=== PATIENT | male | born 1945 | race African-American/Black ===

== ENCOUNTER → 2018-02-11 | Outpatient (CLI) | payer MEDICARE | END | disposition home or self-care (01) | LOC: GOCC 15:27 | PROVIDERS: ATTEND Internal Medicine | DX: R05 Cough (principal) ==

== ENCOUNTER 2018-02-12 12:25 | Emergency (ER) | payer MEDICARE ==
[2018-02-12 12:37] VITALS: TEMP 97.6
--- NOTE | 2018-02-12 12:40 | ED.PDOC ---
History of Present Illness - General Chief Complaint: Skin/Abrasion/Tear Stated Complaint: allergic reaction Time Seen by Provider: 02/12/18 12:34 Source: EMS, [facility] records Exam Limitations: no limitations - History of Present Illness Initial Comments: [facility] PLACED A&D OINTMENT ON PT'S LIPS THIS MORNING. THEY THEN NOTICED HIS LIPS WERE SWELLING UP AND THEY WERE APPROPRIATELY CONCERNED SINCE HE IS A TRACHEOSTOMY/VENTILATOR PT AND THUS SENT TO ER. BASELINE SEVERE DEMENTIA. [facility] GAVE BENADRYL PER GTUBE AT 9 AM Allergies/Adverse Reactions: Allergies NO KNOWN ALLERGY Allergy (Verified 02/12/18 12:37) Home Medications: Ambulatory Orders Methylprednisolone [Medrol Dose Shane] 4 mg GT DAILY 6 Days #21 tab 02/12/18 Review of Systems - Review of Systems Unable to Obtain Due To: dementia Family Medical History - Family History Mother Family History: Unknown Physical Exam - Physical Exam General Appearance: Alert, Comfortable Eye Exam: bilateral normal Ears, Nose, Throat: other - BL LIP EDEMA. TONGUE, TONSILS, AND POSTERIOR OROPHARYNX NO EDEMA NOR ERYTHEMA. Neck: non-tender, full range of motion, supple Respiratory: chest non-tender, lungs clear, normal breath sounds, no respiratory distress, no accessory muscle use Cardiovascular/Chest: normal peripheral pulses, regular rate, rhythm Peripheral Pulses: radial,right: 2+, radial,left: 2+ Gastrointestinal/Abdominal: normal bowel sounds, non tender Back Exam: no CVA tenderness, no vertebral tenderness Extremity: pedal edema Neurologic: other - PT DOES NOT ANSWER QUESTIONS; CHRONIC SEVERE DEMENTIA. Skin Exam: normal color, warm/dry, other - MILD EDEMA OF BLE WHICH APPEARS TO BE CHRONIC. NO ERYTHEMA. NO EDEMA OF GROIN OR FACE (OTHER THAN LIPS) Lymphatic: no adenopathy Progress - Progress Progress: 02/12/18 15:21 BP STARTING TO ELEVATE. PT TAKES CARDIZEM 60 MG PER GT QID AND IT IS DUE NOW, THUS GIVING DOSE. 02/12/18 15:24 ALLERGIC REACTION W/O ANAPHYLAXIS. PT WAS NOT IN RESPIRATORY DISTRESS UPON ER ADMISSION - LUNGS CLEAR, SATS STABLE ON HIS CHRONIC TRACH VENT SETTINGS. PT HAS BEEN OBSERVED FOR 3 HRS AFTER HAVING BEEN GIVEN STEROIDS AND BENADRYL FOR ANGIOEDEMA (LIP SWELLING) ALLERGIC RXN FROM [place] A&D OINTMENT GIVEN AT [place]. PT'S SATS AND O2 REQUIREMENTS HAVE REMAINED STABLE AND NOT CONCERNING. THUS WILL DC BACK TO [facility] ON MEDROL DOSE PACK PER G TUBE. Departure - Departure Clinical Impression: Allergic reaction to chemical substance, Ventilator dependence Disposition: Discharge to SNF Condition: Good Departure Forms: ED Discharge - Pt. Copy, Patient Portal Self Enrollment Instructions: DI for General Allergic Reactions Diet: resume usual diet Activity: increase activity as tolerated Referrals: SHAILEHS WHYTE [Primary Care Provider] - 1-2 Weeks Prescriptions: Methylprednisolone [Medrol Dose Shane] 4 mg GT DAILY 6 Days #21 tab Home Medications: Ambulatory Orders Methylprednisolone [Medrol Dose Shane] 4 mg GT DAILY 6 Days #21 tab 02/12/18 Additional Instructions: Please add A & D ointment to his allergy list.
[2018-02-12] MEDS ORDERED: methylPREDNISolone ACETATE 80 MG/ML VIAL IM ONE (13:20)
[2018-02-12] MEDS ORDERED: diphenhydrAMINE HCL 50 MG/ML VIAL IM ONE (13:20)
[2018-02-12 15:16] VITALS: O2SAT 100
[2018-02-12] MEDS ORDERED: diltiaZEM HCL TAB 30 MG TAB GT ONE (15:19)
[2018-02-12 16:46] VITALS: BP 176/99
== END 2018-02-12 16:46 ==
LOC: ER 12:25
DX: T78.3XXA Angioneurotic edema, initial encounter (principal); T49.3X5A Adverse effect of emollients, demulcents and protectants, initial encounter; Z99.11 Dependence on respirator [ventilator] status; Y92.129 Unspecified place in nursing home as the place of occurrence of the external cause; F03.90 Unspecified dementia, unspecified severity, without behavioral disturbance, psychotic disturbance, mood disturbance, and anxiety
CPT/HCPCS: 94770; J1030; J1200

== ENCOUNTER 2018-03-14 14:20 | Emergency (ER) | payer MEDICARE, MEDICAID ==
[2018-03-14] MEDS ORDERED: IPRATROPIUM/ALBUTEROL 3 ML VIAL NEB ONE ×2 (14:30→14:35)
--- NOTE | 2018-03-14 15:18 | RAD ---
EXAM DESCRIPTION: Abdomen Series CLINICAL HISTORY: anasarca, adb distention COMPARISON: March 04, 2018 and March 08, 2018 FINDINGS: AP supine and upright views of the abdomen show a air-filled dilated loops of bowel the central abdomen. Gastrostomy tube is seen in the left epigastric region. No free intraperitoneal air. No significant air-fluid levels. Single view of the chest shows tracheostomy tube in place. Left subclavian transvenous cardiac pacemaker is noted. Multiple surgical clips in the lower neck region are seen right greater than left. Coarsened increased interstitial markings are seen throughout the right lung and to a lesser degree left lung. There is blunting of the costophrenic angles bilaterally. Moderate disc degenerative changes of the spine are seen. IMPRESSION: Air-filled distended loops of bowel throughout the lower abdomen are seen similar to previous exam. Interval worsening of the coarsened interstitial infiltrate throughout the right lung suggest interval worsening of pneumonia versus aspiration. Stable appearance to interstitial changes in the left lung. Small bilateral pleural effusions are increased from previous. Electronically signed by: Noah Dumont MD 03/14/2018 3:16 PM CDT
--- NOTE | 2018-03-14 17:25 | CT ---
EXAM DESCRIPTION: Abdomen t/Pelvis w/o Contrast CLINICAL HISTORY: 72 years, 72 years, Male, Male, renal failure and abd distention COMPARISON: None. TECHNIQUE: CT of the abdomen and pelvis is performed according to our non contrast protocol This exam was performed according to our departmental dose-optimization program, which includes automated exposure control, adjustment of the mA and/or kV according to patient size and/or use of iterative reconstruction technique. FINDINGS: Large layering bibasilar effusions with adjacent compressive atelectasis and/or infiltrative change anterior to the layering pleural effusions is present in both lung bases. Gastrostomy tube in the anterior aspect of the epigastrium with a fluid distended gastric body and fundus in the left upper quadrant is apparent. Overall image quality is limited by the lack of oral or IV contrast enhancement and the patient's overlying arms and upper extremities. Extensive subcutaneous and to a lesser extent mesenteric edematous changes are noted. The liver is normal in size with a normal distended gallbladder without definite gallstones and a small normal spleen. Pancreas appears atrophic and poorly visualized. Extensive cystic disease with numerous small to moderately large cyst involving each kidney is noted with no evidence of hydronephrosis. Aortic calcification without aneurysm is present. Small bowel caliber is normal but large amount of stool distends the left colon with marked distention of the rectum and sigmoid consistent with fecal impaction. The bladder is decompressed and drained via Rios catheter. Significant abdominal or pelvic ascites is not apparent. Inguinal or ventral hernia is not evident. IMPRESSION: 1. Markedly abnormal examination with extensive subcutaneous edematous changes and large bibasilar effusions with infiltrate or compressive atelectasis at the lung bases. 2. Gastrostomy tube in place along with Rios catheter in the pelvis with a fluid distended stomach and a markedly dilated stool distended rectum and distal sigmoid suggesting fecal impaction with considerable stool extending proximally in the left colon and transverse colon. 3. A small bowel obstruction or ascites or evidence of perforation within the abdominal cavity is not apparent 4. Normal-sized kidneys with extensive cystic disease without evidence of renal obstruction. Evaluation for a solid renal mass is markedly limited by the poor image quality and lack of contrast. 5. Advanced degenerative changes of the lower lumbar spine without destructive process. Electronically signed by: Dev Ledesma MD 03/14/2018 5:23 PM CDT
--- NOTE | 2018-03-14 17:30 | CT ---
EXAM DESCRIPTION: Chest w/o Contrast CLINICAL HISTORY: 72 years, Male, effusions vs empyema COMPARISON: None TECHNIQUE: Thin-section noncontrast axial CT images are obtained according to our protocol. Reconstructed MPR images are created and reviewed as well. This exam was performed according to our departmental dose-optimization program, which includes automated exposure control, adjustment of the mA and/or kV according to patient size and/or use of iterative reconstruction technique. FINDINGS: Noncontrast imaging of the chest demonstrates severe bullous emphysematous changes involving the apical regions of the lung with compressive atelectasis and/or dense pneumonitis with large layering pleural effusions bilaterally, slightly worse on the right than the left. Tracheostomy tube is well-positioned in the pulmonary apices are almost completely replaced by bolus disease bilaterally. How much of the consolidating changes particularly in the mid lung field on the right and how much of the interstitial coarsened markings represent acute interstitial infiltrate and how much represents chronic fibrosis is difficult to assess. Assessment of the hilar contours is very limited by the extensive infiltrative changes and pleural effusions. Heart size is judged normal. At least one moderately enlarged 2.5 cm pretracheal lymph node and modest enlargement of aorticopulmonary window lymphadenopathy noted. IMPRESSION: 1. Markedly abnormal chest with very large layering posterior pleural effusions bilaterally with dense consolidating changes in the midlung field on the right as well as extensive fibrotic and bullous emphysematous changes throughout both lungs. 2. No evidence of pneumothorax is noted. Tracheostomy tube well positioned. 3. Evaluation for a primary pulmonary mass or malignancy is markedly limited by the pleural fluid consolidating changes and bullous emphysematous changes in the apical regions. 4. Modest mediastinal lymphadenopathy in the pretracheal and aorticopulmonary window region of uncertain significance. The jorge are not well delineated secondary to the inflammatory changes and pleural fluid. Electronically signed by: Dev Ledesma MD 03/14/2018 5:29 PM CDT
[2018-03-14] MEDS ORDERED: MORPHINE SULFATE INJ 10 MG/ML VIAL IV ONE (17:50)
--- NOTE | 2018-03-14 17:56 | ED.PDOC ---
History of Present Illness - General Chief Complaint: GI Problem Stated Complaint: Distended abdomen Time Seen by Provider: 03/14/18 14:33 Source: patient Exam Limitations: clinical condition - History of Present Illness Initial Comments: the patient is a 72-year-old Citizen [place] male brought to the emergency room by EMS from [facility] secondary to abdominal distention and increased residuals with his tube feeds over the last day and a half. The patient has been having increasing anasarca as well. The patient has also been requiring escalated ventilator settings. According to staff familiar with the patient, the patient has been exhibiting signs of pain and distress. However secondary to the patient not being on comfort care they have been unable to escalate his pain medication doses in order to get him comfortable. The patient just recently came back from [facility] for treatment for bilateral pneumonia. He received his last dose of IV antibiotics just this morning. He was on cefepime and vancomycin. The patient does look uncomfortable. He does appear to have significant periods of discomfort and when this happens his blood pressure does markedly rise. The patient does have total body anasarca. He has a sacral decubitus ulcer as well as a posterior decubitus ulcer to his right calf. He has 3+ edema to his hands and feet. He has coarse rales bilaterally in lung moseley. He has markedly prolonged expiratory phases and his breathing. Abdomen is moderately distended but I cannot tell that he has significant discomfort in any one spot. Timing/Duration: unsure Severity: moderate Improving Factors: nothing Worsening Factors: nothing Allergies/Adverse Reactions: Allergies Lisinopril Allergy (Verified 03/14/18 14:50) A & D ointment Allergy (Uncoded 03/04/18 18:37) Home Medications: Ambulatory Orders Acetaminophen Suppository [Tylenol Suppository] 650 mg MS Q6H PRN 02/12/18 Acetylcysteine 2 ml IN BID 02/12/18 Atorvastatin Calcium [Lipitor] 10 mg PEG DAILY 02/12/18 Bisacodyl Suppository 10Mg [Dulcolax Suppository 10mg] 1 ea MS DAILY PRN Clonazepam 0.5 mg PEG Q8H 02/12/18 Diltiazem HCl 60 mg PO Q6H 02/12/18 Docusate Sodium 50 mg PEG BID 02/12/18 Famotidine 20 mg PEG DAILY 02/12/18 Gabapentin 300 mg PEG Q6H 02/12/18 HYDROcodone 7.5MG/APAP 325MG [[place] 7.5/325] 1 tab PEG Q6H PRN 02/12/18 Hydralazine HCl 50 mg PO Q8H 02/12/18 Ipratropium/Albuterol [Duoneb] 3 ml NEB Q6H 02/12/18 Isosorbide Dinitrate 20 mg PEG Q8H 02/12/18 Lactulose Syrup [Chronulac] 30 ml PEG DAILY 02/12/18 Methylprednisolone [Medrol Dose Shane] 4 mg GT DAILY 6 Days #21 tab 02/12/18 Polyvinyl Alcohol [Artificial Tears] 1 drop BOTH_EYES PRN 02/12/18 diphenhydrAMINE HCL [Benadryl] 50 mg PEG BID 02/12/18 guaiFENesin 100 MG/5 ML [Robitussin] 10 ml PEG DAILY 02/12/18 Review of Systems - Review of Systems Review of Systems: 03/14/18 17:51 unable to obtain secondary to patient's condition. Unable to Obtain Due To: condition Past Medical History (General) - Patient Medical History Hx Stroke: No Hx Asthma: Yes Hx of COPD: Yes Hx Cardiac Disorders: - pacemaker Hx Congestive Heart Failure: No Hx Pacemaker: Yes Hx Hypertension: Yes Hx Diabetes: Yes Hx Gastroesophageal Reflux: Yes - Vaccination History Hx Influenza Vaccination: Yes - 12/06/17 Hx Pneumococcal Vaccination: - unknown - Social History Hx Tobacco Use: No Hx Alcohol Use: No Hx Substance Use: No Hx Substance Use Treatment: No Hx Depression: No Family Medical History - Family History Mother Family History: Unknown Physical Exam - Physical Exam General Appearance: Alert - but the patient is unable to communicate. He does appear to be in distress at different times. Eye Exam: bilateral normal - he does not track with his eyes. Ears, Nose, Throat: normal ENT inspection Neck: other - tracheostomy is in place. There is marked scarring from the long- term trach collar. Respiratory: crackles, rales, rhonchi, wheezing Cardiovascular/Chest: other - diffuse anasarca. Heart sounds are difficult to hear secondary to pulmonary background noise. Regular rate when the patient is not in pain. Peripheral Pulses: radial,right: 2+, radial,left: 2+, dorsalis pedis,right: 2+, dorsalis pedis,left: 2+ Gastrointestinal/Abdominal: soft - but distended. G-tube is in place. Rectal Exam: deferred Back Exam: no CVA tenderness Extremity: normal capillary refill, other - the patient does have paralysis of all 4 extremities. He does have anasarca in all 4 extremities. Neurologic: alert, other - nable to test neurologically further secondary to chronic issues Skin Exam: other - the patient has a sacral ulcer as well as a right calf ulcer Comments: Vital Signs - 24 hr 03/14/18 03/14/18 03/14/18 14:38 14:40 15:01 Temperature 97.8 F Pulse Rate 102 H Pulse Rate [ 105 H 104 H 103 H Apical] Respiratory 16 16 16 Rate Respiratory Rate [Volume Control Data] Blood Pressure 202/88 180/74 180/86 [Right Arm] O2 Sat by Pulse 95 95 95 Oximetry 03/14/18 03/14/18 03/14/18 15:05 15:53 16:00 Temperature Pulse Rate 102 H 102 H Pulse Rate [ 100 H 100 H Apical] Respiratory 16 16 16 Rate Respiratory 16 Rate [Volume Control Data] Blood Pressure 186/77 184/73 [Right Arm] O2 Sat by Pulse 94 L 94 L 95 Oximetry 03/14/18 16:25 Temperature Pulse Rate Pulse Rate [ Apical] Respiratory 16 Rate Respiratory 16 Rate [Volume Control Data] Blood Pressure [Right Arm] O2 Sat by Pulse Oximetry Progress - Progress Progress: 03/14/18 17:59 the patient is a 72-year-old -Citizen [place] male presenting to the emergency room by EMS secondary to a deterioration over the last couple of days. The patient is a quadriplegic and is essentially unable to communicate at this time. He is long-term ventilator dependent. The patient has a recurrence of ventilator associated pneumonia. He has large pleural effusions that are likely related to renal failure as well as hypoalbuminemia. He appears to be having significant slowing and worsening of his intestinal function and significant worsening of his renal function. He does appear to be becoming septic based upon his blood work. The patient's prognosis given these acute issues on top of his chronic problems is very poor. At 5:35 PM today I discussed the patient with his next of kin, a Mrs. Bri Lopes, at [phone]. i did explain the patient's condition and prognosis to her. Initially she wanted the patient sent to [facility] for aggressive care. Within 5 minutes however she called back and decided that she wanted comfort care for him only. I did explain to her what comfort care was. She has agreed to this. The patient will be sent back to [facility] where comfort care measures can be assumed. He did receive a dose of morphine here. Ventilator settings have been adjusted. Given his acute and chronic problems, I believe the decision to be a very reasonable one. Aggressive care would very likely not change the outcome and only increase his suffering. - Results/Orders Results/Orders: chest x-ray shows worsening infiltrates and effusions. CT scan of the chest without contrast due to renal function shows large bibasilar pleural effusions with overlying atelectasis versus infiltrates. Extensive subcutaneous edema is noted. Abdominal CT scan shows large renal cysts. He does have a large amount of stool towards the rectum. No evidence of obstruction. Atrophic pancreas. Minimal ascites. Laboratory Results - last 24 hr 03/14/18 03/14/18 03/14/18 15:45 15:45 15:45 WBC 24.2 H* RBC 3.54 L Hgb 9.0 L Hct 28.8 L MCV 81.4 MCH 25.4 L MCHC 31.1 L RDW 19.6 H Plt Count 537 H MPV 8.5 Absolute Neuts (auto) Not Reportable Absolute Lymphs (auto) Not Reportable Absolute Monos (auto) Not Reportable Absolute Eos (auto) Not Reportable Neutrophils % Not Reportable Neutrophils % (Manual) 66.0 Lymphocytes % Not Reportable Lymphocytes % (Manual) 13.0 Monocytes % Not Reportable Monocytes % (Manual) 6.0 Eosinophils % Not Reportable Basophils % Not Reportable Band Neutrophils 11.0 H* Eosinophils 1.0 Metamyelocytes 3.0 H Hypochromia 1+ Platelet Estimate Increased Anisocytosis 2+ PT 14.5 H INR 1.250 PTT (SP) 26.1 Sodium 131 L Potassium 5.2 H Chloride 99 L Carbon Dioxide 23 Anion Gap 14.2 BUN 86 H Creatinine 2.00 H BUN/Creatinine Ratio 43.0 H Random Glucose 107 H Serum Osmolality 289.3 Calcium 8.9 Magnesium 2.5 Total Bilirubin 0.6 AST 23 ALT 20 Alkaline Phosphatase 179 H Creatine Kinase 32 L CK-MB (CK-2) 2.7 CK-MB (CK-2) % Not Reportable Troponin I 0.02 B-Natriuretic Peptide 203.0 H* Serum Total Protein 7.0 Albumin 2.0 L Globulin 5.0 H Albumin/Globulin Ratio 0.4 L Amylase 24 L Lipase 29 Departure - Departure Clinical Impression: Ventilator associated pneumonia, Generalized intestinal dysmotility, Hypoalbuminemia, Quadriplegia Acute renal failure Qualifiers: Acute renal failure type: unspecified Qualified Code(s): N17.9 - Acute kidney failure, unspecified Sepsis Qualifiers: Sepsis type: sepsis due to unspecified organism Qualified Code(s): A41.9 - Sepsis, unspecified organism Disposition: Discharge to SNF Condition: Serious Departure Forms: ED Discharge - Pt. Copy, Patient Portal Self Enrollment Instructions: DI for Sepsis -- Adult, Ventilator-Associated Pneumonia, Acute Renal Failure Diet: other - resume tube feedings only as tolerated Referrals: SHAILESH WHYTE [Primary Care Provider] - 1-2 Days Home Medications: Ambulatory Orders Acetaminophen Suppository [Tylenol Suppository] 650 mg MS Q6H PRN 02/12/18 Acetylcysteine 2 ml IN BID 02/12/18 Atorvastatin Calcium [Lipitor] 10 mg PEG DAILY 02/12/18 Bisacodyl Suppository 10Mg [Dulcolax Suppository 10mg] 1 ea MS DAILY PRN Clonazepam 0.5 mg PEG Q8H 02/12/18 Diltiazem HCl 60 mg PO Q6H 02/12/18 Docusate Sodium 50 mg PEG BID 02/12/18 Famotidine 20 mg PEG DAILY 02/12/18 Gabapentin 300 mg PEG Q6H 02/12/18 HYDROcodone 7.5MG/APAP 325MG [[place] 7.5/325] 1 tab PEG Q6H PRN 02/12/18 Hydralazine HCl 50 mg PO Q8H 02/12/18 Ipratropium/Albuterol [Duoneb] 3 ml NEB Q6H 02/12/18 Isosorbide Dinitrate 20 mg PEG Q8H 02/12/18 Lactulose Syrup [Chronulac] 30 ml PEG DAILY 02/12/18 Methylprednisolone [Medrol Dose Shane] 4 mg GT DAILY 6 Days #21 tab 02/12/18 Polyvinyl Alcohol [Artificial Tears] 1 drop BOTH_EYES PRN 02/12/18 diphenhydrAMINE HCL [Benadryl] 50 mg PEG BID 02/12/18 guaiFENesin 100 MG/5 ML [Robitussin] 10 ml PEG DAILY 02/12/18 Additional Instructions: the patient is a 44-year-old male presenting to the emergency room with what appears to be pain due to a left ureteral lithiasis, ased upon symptoms and hematuria. The patient has received some pain medications and IV fluids and is doing much better. KUB failed to show any stone along the path of the ureter, indicating that he has either passed into the ureter or is likely very small. The patient will be allowed to go home and will receive prescriptions for Flomax and Fioricet for as needed use. He needs to keep himself well-hydrated and move around a good bit. If he is still not passed a stone or still having significant discomfort in 3-5 days then he may need reevaluation. Renal function is within normal limits at this time. CT scan is not indicated at this time. No evidence of infection in the urine otherwise. he should follow up with his primary care doctor early next week for reevaluation. ER warnings were given. [facility] being [facility] to start hospice care arrangements.
[2018-03-14 18:44] VITALS: BP 179/76; TEMP 96; O2SAT 95
== END 2018-03-14 18:40 ==
LOC: ER 14:20
DX: A41.9 Sepsis, unspecified organism (principal); J95.851 Ventilator associated pneumonia; E88.09 Other disorders of plasma-protein metabolism, not elsewhere classified; K30 Functional dyspepsia; G82.50 Quadriplegia, unspecified; N17.9 Acute kidney failure, unspecified; J44.9 Chronic obstructive pulmonary disease, unspecified; I10 Essential (primary) hypertension; R60.1 Generalized edema; L89.159 Pressure ulcer of sacral region, unspecified stage; E11.9 Type 2 diabetes mellitus without complications; L89.899 Pressure ulcer of other site, unspecified stage; Z95.0 Presence of cardiac pacemaker; Z79.899 Other long term (current) drug therapy
CPT/HCPCS: 36415; 71250; 74019; 74176; 80053; 82150; 82550; 82553; 83690; 83735; 83880; 84484; 85025; 85610; 85730; 94002; 94640; 94770; J2270; J7620

== ENCOUNTER 2018-04-14 15:05 | Emergency (ER) | payer MEDICARE, MEDICAID ==
--- NOTE | 2018-04-14 15:33 | ED.PDOC ---
History of Present Illness - General Chief Complaint: Respiratory Problem Stated Complaint: Low O2 sats, low BP Time Seen by Provider: 04/14/18 15:32 Exam Limitations: clinical condition - patient non verbal ,ventilator, physical impairment - History of Present Illness Initial Comments: Francesco Fernández 72 y/o male chronic ventilator dependent brought by EMS after it was found that he had low xygen saturation at the [facility] and he was bagged at the facility and unable to get his saturation up to 90%.EMS was then called .On his arrival continued to have low o2 saturation and tracheostomy tube cuff unable to inflate so it was replaced by same size tube but noted on removal of trach tube there was blood on the cuff and suctioned again no blockage noted but trach tube unable to stay in place its getting pushed out.Has COPD,heart disease with pacemaker,anasarca also DNR but facility called up family regarding patients condition and they want to send patient to ER.Respiratory therapist unable to get a good tidal volume despite replacing his tracheostomy tube.Ct -Chest report march 14 large layering pleural effusion bilaterally w/dense consolidating changes and extensive bullous emphematous changes;also Ct Abdomen-extensive subcutaneous emphysematous changes large bibasilar effusion no bowel obstruction. Timing/Duration: 1-3 hours Severity: severe Improving Factors: nothing Worsening Factors: nothing Associated Symptoms: other - see hpi Allergies/Adverse Reactions: Allergies Lisinopril Allergy (Verified 04/14/18 15:30) A & D ointment Allergy (Uncoded 03/04/18 18:37) Home Medications: Ambulatory Orders Acetaminophen Suppository [Tylenol Suppository] 650 mg VT Q6H PRN 02/12/18 Acetylcysteine 2 ml IN BID 02/12/18 Atorvastatin Calcium [Lipitor] 10 mg PEG DAILY 02/12/18 Bisacodyl Suppository 10Mg [Dulcolax Suppository 10mg] 1 ea VT DAILY PRN Clonazepam 0.5 mg PEG Q8H 02/12/18 Diltiazem HCl 60 mg PO Q6H 02/12/18 Docusate Sodium 50 mg PEG BID 02/12/18 Famotidine 20 mg PEG DAILY 02/12/18 Gabapentin 300 mg PEG Q6H 02/12/18 HYDROcodone 7.5MG/APAP 325MG [[place] 7.5/325] 1 tab PEG Q6H PRN 02/12/18 Hydralazine HCl 50 mg PO Q8H 02/12/18 Ipratropium/Albuterol [Duoneb] 3 ml NEB Q6H 02/12/18 Isosorbide Dinitrate 20 mg PEG Q8H 02/12/18 Lactulose Syrup [Chronulac] 30 ml PEG DAILY 02/12/18 Methylprednisolone [Medrol Dose Shane] 4 mg GT DAILY 6 Days #21 tab 02/12/18 Polyvinyl Alcohol [Artificial Tears] 1 drop BOTH_EYES PRN 02/12/18 diphenhydrAMINE HCL [Benadryl] 50 mg PEG BID 02/12/18 guaiFENesin 100 MG/5 ML [Robitussin] 10 ml PEG DAILY 02/12/18 Review of Systems - Review of Systems Unable to Obtain Due To: condition, clinical condition Past Medical History (General) - Patient Medical History Hx Stroke: No Hx Asthma: Yes Hx of COPD: Yes Hx Cardiac Disorders: - pacemaker Hx Congestive Heart Failure: No Hx Pacemaker: Yes Hx Hypertension: Yes Hx Diabetes: Yes Hx Gastroesophageal Reflux: Yes Surgical History: pacemaker, other - tracheostomy - Vaccination History Hx Influenza Vaccination: Yes - 12/06/17 Hx Pneumococcal Vaccination: - unknown - Social History Hx Tobacco Use: No Hx Alcohol Use: No Hx Substance Use: No Hx Substance Use Treatment: No Hx Depression: No Family Medical History - Family History Mother Family History: Unknown Physical Exam - Physical Exam General Appearance: Other - unresponsive Eye Exam: bilateral other - unable to evaluate but PERRL Neck: other - tracheostomy with bloody return on suctioning Respiratory: decreased breath sounds Gastrointestinal/Abdominal: distended Extremity: other - anasarca,contracture deformities Neurologic: other - grimace on painful stimuli Skin Exam: warm/dry Progress - Progress Progress: 04/14/18 17:05 04/14/18 15:59 NG [Tube(s):Nasogastric,Insertion] PRN CARDIAC PANEL,ER Stat HEPATIC FUNCTION PANEL Stat Chest,1 View [RAD] Stat 04/14/18 16:38 ABG [Arterial Blood Gas] Stat Laboratory Results - last 24 hr 04/14/18 15:59 WBC 19.7 H RBC 2.94 L Hgb 7.2 L* Hct 24.1 L MCV 82.0 MCH 24.4 L MCHC 29.7 L RDW 19.8 H Plt Count 385 MPV 8.5 Absolute Neuts (auto) 13.10 H Absolute Lymphs (auto) 5.80 H Absolute Monos (auto) 0.60 Absolute Eos (auto) 0.20 Absolute Basos (auto) 0.00 Neutrophils % 66.2 Lymphocytes % 29.5 Monocytes % 2.9 Eosinophils % 1.2 Basophils % 0.2 Sodium 152 H Potassium 3.2 L Chloride 107 Carbon Dioxide 33 H Anion Gap 15.2 BUN 78 H Creatinine 1.40 H BUN/Creatinine Ratio 55.7 H Random Glucose 89 Serum Osmolality 324.5 H Calcium 8.7 Magnesium 2.0 Total Bilirubin 0.5 Direct Bilirubin 0.2 Indirect Bilirubin 0.3 AST 30 ALT 16 Alkaline Phosphatase 185 H Creatine Kinase 51 CK-MB (CK-2) 1.9 CK-MB (CK-2) % Not Reportable Troponin I 0.10 H* Serum Total Protein 7.6 Albumin 1.8 L 04/14/18 17:05 Spoke with sister regarding critical condition of his brother and stating that his condition is deteriorating nothing could be done further and requesting care and comfort only and also stated that 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 04/14/18 17:46 Departure - Departure Clinical Impression: Advanced COPD, Ventilator dependent, Anasarca Acute and chronic respiratory failure, unspecified whether with hypoxia or hypercapnia Qualifiers: Respiratory failure complication: unspecified whether with hypoxia or hypercapnia Qualified Code(s): J96.20 - Acute and chronic respiratory failure, unspecified whether with hypoxia or hypercapnia CHF (congestive heart failure) Qualifiers: Congestive heart failure type: unspecified congestive heart failure type Congestive heart failure chronicity: unspecified congestive heart failure chronicity Qualified Code(s): I50.9 - Heart failure, unspecified Time of Disposition: 17:52 Disposition: Condition: Serious Departure Forms: Patient Portal Self Enrollment Referrals: SHAILESH WHYTE [Primary Care Provider] - 1-2 Weeks Home Medications: Ambulatory Orders Acetaminophen Suppository [Tylenol Suppository] 650 mg VT Q6H PRN 02/12/18 Acetylcysteine 2 ml IN BID 02/12/18 Atorvastatin Calcium [Lipitor] 10 mg PEG DAILY 02/12/18 Bisacodyl Suppository 10Mg [Dulcolax Suppository 10mg] 1 ea VT DAILY PRN Clonazepam 0.5 mg PEG Q8H 02/12/18 Diltiazem HCl 60 mg PO Q6H 02/12/18 Docusate Sodium 50 mg PEG BID 02/12/18 Famotidine 20 mg PEG DAILY 02/12/18 Gabapentin 300 mg PEG Q6H 02/12/18 HYDROcodone 7.5MG/APAP 325MG [[place] 7.5/325] 1 tab PEG Q6H PRN 02/12/18 Hydralazine HCl 50 mg PO Q8H 02/12/18 Ipratropium/Albuterol [Duoneb] 3 ml NEB Q6H 02/12/18 Isosorbide Dinitrate 20 mg PEG Q8H 02/12/18 Lactulose Syrup [Chronulac] 30 ml PEG DAILY 02/12/18 Methylprednisolone [Medrol Dose Shane] 4 mg GT DAILY 6 Days #21 tab 02/12/18 Polyvinyl Alcohol [Artificial Tears] 1 drop BOTH_EYES PRN 02/12/18 diphenhydrAMINE HCL [Benadryl] 50 mg PEG BID 02/12/18 guaiFENesin 100 MG/5 ML [Robitussin] 10 ml PEG DAILY 02/12/18
[2018-04-14 15:46] VITALS: BP 98/45; TEMP 97.2
[2018-04-14] MEDS ORDERED: NOREPINEPHRINE BITARTRATE 4 MG/4 ML VIAL IVPB ONE (16:33)
[2018-04-14] MEDS ORDERED: DEXTROSE 5% 250ML 250 ML ONE (16:34)
--- NOTE | 2018-04-14 17:57 | RAD ---
EXAM DESCRIPTION: Chest,1 View CLINICAL HISTORY: 72 years Male low O2 saturation COMPARISON: 03/14/2018. FINDINGS: There are diffuse infiltrates in the right lung which are overall improved in appearance. There appears to be fairly dense consolidation in the lateral aspect of the mid to upper right lung and follow-up is recommended to exclude an underlying mass. There is less pronounced infiltrate in the left lung which appears similar compared to the previous study. There are bilateral pleural effusions again visualized. No pneumothorax. The cardiac silhouette is not enlarged. There is a left cardiac pacemaker/defibrillator device with lead tip projected over the right ventricle. Endotracheal tube tip is above the juan. There is an NG tube but the tip is not well visualized. Repeat imaging over the lower chest and upper abdomen could be obtained to better evaluate NG tube positioning. Multiple surgical clips are visualized within the lower neck bilaterally. IMPRESSION: Infiltrates in the lungs greater on the right. The infiltrates in the right lung appear improved compared to the previous study. An underlying mass lesion is not excluded and continued follow-up is recommended. Bilateral pleural effusions. There appears to be an NG tube but the tip is not well visualized. X-ray imaging over the lower chest and upper abdomen may be helpful to better visualize the NG tube tip. Electronically signed by: Iraj Rossi MD 04/14/2018 5:56 PM CDT
[2018-04-14 18:00] VITALS: O2SAT 80
== END 2018-04-14 17:20 | disposition expired ==
LOC: ER 15:05
DX: J96.20 Acute and chronic respiratory failure, unspecified whether with hypoxia or hypercapnia (principal); I11.0 Hypertensive heart disease with heart failure; I50.9 Heart failure, unspecified; R60.1 Generalized edema; E11.9 Type 2 diabetes mellitus without complications; D49.1 Neoplasm of unspecified behavior of respiratory system; Z99.11 Dependence on respirator [ventilator] status; Z95.0 Presence of cardiac pacemaker; Z79.84 Long term (current) use of oral hypoglycemic drugs; Z66 Do not resuscitate
CPT/HCPCS: 71045; 80048; 80076; 82550; 82553; 84484; 85025; 85610; 85730; 94002; 94760; J7060